=== PATIENT | male | born 1990 | race African-American/Black ===

== ENCOUNTER 2024-08-19 21:10 | Emergency (ER) | payer OTHER ==
[2024-08-19 21:20] VITALS: BP 151/96; PULSE 85; RESP 16; TEMP 98.9; BMI 39.3
[2024-08-19] MEDS ORDERED: ACETAMINOPHEN 325 MG TABLET (FP) ONE (21:50)
[2024-08-19] MEDS: ACETAMINOPHEN 500 MG TABLET (FP) PO ONE (21:59)
== END 2024-08-19 22:53 | disposition home or self-care (01) ==
LOC: JERFT 21:10
DX: S00.03XA Contusion of scalp, initial encounter (principal); V03.10XA Pedestrian on foot injured in collision with car, pick-up truck or van in traffic accident, initial encounter
CPT/HCPCS: 70450-TC; 99284-25